=== PATIENT | male | born 1980 | race Caucasian/White ===

== ENCOUNTER 2021-04-02 10:06 | Inpatient (IN) | payer OTHER ==
[~2021-04-02] VITALS: Ht 188 cm; Wt 128.5 kg
[2021-04-02 13:03] LABS: BASOPHIL 0.3 % (0-2); EOSINOPHIL 0.1 % (0-5); HCT 44.6 % (42.0-52.0); HGB 15.7 g/dl (13.2-18.0); LYMPHOCYTE 5.1 % (15-48); MCH 30.1 pg (25.0-31.0); MCHC 35.2 g/dL (32.0-36.0); MCV 85.6 fL (78.0-100.0); MONOCYTE 9.8 % (0-12); MPV 9.4 fL (6.0-9.5); NEUTROPHIL 83.9 % (41-80); NRBC 0; PLT 290 K/uL (150-400); RBC 5.21 M/uL (4.70-6.00); RDW 12.1 % (11.5-14.0); WBC 21.9 K/uL (4.0-10.5)
[2021-04-02 13:23] LABS: ALBUMIN 3.3 g/dL (3.4-5.0); BILIRUBIN - TOTAL 0.7 mg/dL (0.2-1.0); BUN/CREAT RATIO (CALC) 12.4 RATIO; CREATININE 0.89 mg/dL (0.67-1.17); GLOBULIN (CALCULATION) 3.6 g/dL; POTASSIUM 3.3 mmol/L (3.5-5.1); TOTAL PROTEIN 6.9 g/dL (6.4-8.2)
[2021-04-02 13:26] LABS: BILIRUBIN NEGATIVE (NEGATIVE); BLOOD 1+ Ery/uL (NEGATIVE); CLARITY CLEAR (CLEAR); COLOR YELLOW (YELLOW); GLUCOSE (U) NORMAL (NORMAL); LEUKOCYTES NEGATIVE Leu/uL (NEGATIVE); NITRITE NEGATIVE (NEGATIVE); PROTEIN 1+ mg/dL (NEGATIVE); UROBILINOGEN 0.2 mg/dL (0.2-1.0)
[2021-04-02 13:45] LABS: BACTERIA TRACE; MUCOUS TRACE; SQUAMOUS EPITHELIAL CELLS RARE; URINARY RBC RARE
[2021-04-02 14:25] LABS: LACTIC ACID 1.1 mmol/L (0.4-1.9)
[2021-04-02 15:47] LABS: CORONAVIRUS 2019 SARS-COV-2 NEGATIVE (NEGATIVE); INFLUENZA A NAA NEGATIVE (NEGATIVE)
[2021-04-03 04:22] LABS: BILIRUBIN 1+ mg/dL (NEGATIVE); BLOOD 1+ Ery/uL (NEGATIVE); CLARITY CLEAR (CLEAR); COLOR YELLOW (YELLOW); GLUCOSE (U) NORMAL (NORMAL); LEUKOCYTES NEGATIVE Leu/uL (NEGATIVE); NITRITE NEGATIVE (NEGATIVE); PROTEIN 1+ mg/dL (NEGATIVE); SPECIFIC GRAVITY >=1.030 (1.001-1.030); UROBILINOGEN 0.2 mg/dL (0.2-1.0); pH 5.5 (5.0-9.0)
[2021-04-03 04:30] LABS: BACTERIA 2+
[2021-04-03 04:33] LABS: AMORPHOUS URATES CRYSTALS MODERATE; URINARY WBC RARE
[2021-04-03 04:34] LABS: MUCOUS TRACE
[2021-04-03 07:00] LABS: BASOPHIL 0.3 % (0-2); EOSINOPHIL 0 % (0-5); HCT 40.5 % (42.0-52.0); LYMPHOCYTE 3.6 % (15-48); MCH 29.5 pg (25.0-31.0); MCHC 34.6 g/dL (32.0-36.0); MCV 85.4 fL (78.0-100.0); MONOCYTE 8.5 % (0-12); NEUTROPHIL 87.1 % (41-80); NRBC 0; PLT 290 K/uL (150-400); RBC 4.74 M/uL (4.70-6.00); RDW 12.2 % (11.5-14.0)
[2021-04-03 07:54] LABS: BUN/CREAT RATIO (CALC) 13.4 RATIO; CREATININE 0.82 mg/dL (0.67-1.17); MAGNESIUM 2.2 mg/dL (1.8-2.4); POTASSIUM 3.2 mmol/L (3.5-5.1)
[2021-04-03] MEDS ORDERED: LIPITOR20 MG PO (09:39)
[2021-04-03] MEDS ORDERED: XANAX0.5 MG PO (09:39)
[2021-04-03] MEDS ORDERED: NORVASC5 MG PO (09:40)
[2021-04-03] MEDS ORDERED: HCTZ25 MG PO (09:40)
[2021-04-03] MEDS ORDERED: SYNTHROID100 MCG PO (09:40)
[2021-04-03] MEDS ORDERED: NEXIUM 24HR20 M1 PO (09:41)
[2021-04-03] MEDS ORDERED: CLARITIN10 MG PO (09:41)
[2021-04-04 06:08] LABS: BASOPHIL 0.4 % (0-2); EOSINOPHIL 0.4 % (0-5); HCT 42.2 % (42.0-52.0); HGB 14.3 g/dl (13.2-18.0); MCH 29.9 pg (25.0-31.0); MCHC 33.9 g/dL (32.0-36.0); MCV 88.3 fL (78.0-100.0); MPV 9.1 fL (6.0-9.5); NEUTROPHIL 82.6 % (41-80); NRBC 0; PLT 323 K/uL (150-400); RBC 4.78 M/uL (4.70-6.00); RDW 12.8 % (11.5-14.0); WBC 16.2 K/uL (4.0-10.5)
[2021-04-04 06:31] LABS: BUN/CREAT RATIO (CALC) 15.3 RATIO; CREATININE 0.72 mg/dL (0.67-1.17)
--- NOTE | 2021-04-05 02:58 | NUR ---
PT REPORTS INCREASED FLATUS THIS EVENING; PROVIDING SOME RELIEF.
[2021-04-05 13:29] LABS: HCT 43.4 % (42.0-52.0); HGB 14.8 g/dl (13.2-18.0); MCH 29.5 pg (25.0-31.0); MCHC 34.1 g/dL (32.0-36.0); MCV 86.5 fL (78.0-100.0); MPV 8.5 fL (6.0-9.5); RBC 5.02 M/uL (4.70-6.00); RDW 12.9 % (11.5-14.0); WBC 17.4 K/uL (4.0-10.5)
[2021-04-05 13:46] LABS: BUN/CREAT RATIO (CALC) 17.4 RATIO; CREATININE 0.69 mg/dL (0.67-1.17); POTASSIUM 2.8 mmol/L (3.5-5.1)
[2021-04-06 07:23] LABS: HCT 43.8 % (42.0-52.0); HGB 15.3 g/dl (13.2-18.0); MCH 30.4 pg (25.0-31.0); MCHC 34.9 g/dL (32.0-36.0); MCV 86.9 fL (78.0-100.0); MPV 8.5 fL (6.0-9.5); RBC 5.04 M/uL (4.70-6.00); RDW 12.9 % (11.5-14.0); WBC 17.4 K/uL (4.0-10.5)
[2021-04-06 07:56] LABS: BUN/CREAT RATIO (CALC) 12.7 RATIO; CREATININE 0.79 mg/dL (0.67-1.17); POTASSIUM 3.3 mmol/L (3.5-5.1)
[2021-04-07 06:53] LABS: BASOPHIL 0.8 % (0-2); EOSINOPHIL 1.3 % (0-5); HCT 43.9 % (42.0-52.0); LYMPHOCYTE 15.5 % (15-48); MCH 29.9 pg (25.0-31.0); MCHC 34.2 g/dL (32.0-36.0); MCV 87.6 fL (78.0-100.0); MONOCYTE 9.6 % (0-12); MPV 8.5 fL (6.0-9.5); NRBC 0; PLT 452 K/uL (150-400); RBC 5.01 M/uL (4.70-6.00)
[2021-04-07 07:01] LABS: WBC 16.1 K/uL (4.0-10.5)
[2021-04-07 07:29] LABS: ALBUMIN 2.5 g/dL (3.4-5.0); BILIRUBIN - TOTAL 0.4 mg/dL (0.2-1.0); BUN/CREAT RATIO (CALC) 9.3 RATIO; CREATININE 0.86 mg/dL (0.67-1.17); GLOBULIN (CALCULATION) 4.2 g/dL; POTASSIUM 3.2 mmol/L (3.5-5.1); TOTAL PROTEIN 6.7 g/dL (6.4-8.2)
[2021-04-07 07:30] LABS: MAGNESIUM 1.6 mg/dL (1.8-2.4)
[2021-04-07] MEDS ORDERED: NORCO 5-325 TA1 EACH PO (14:14)
[2021-04-07] MEDS ORDERED: ZOFRAN4 M1 PO (14:14)
[2021-04-07] MEDS ORDERED: POTASSIUM CHLO20 ME1 PO (14:14)
[2021-04-07] MEDS ORDERED: METRONIDAZOLE500 MG PO (14:16)
[2021-04-07] MEDS ORDERED: LEVAQUIN750 MG PO (14:16)
== END 2021-04-07 16:10 | disposition home or self-care (01) | DRG 853 ==
LOC: FER 10:06 → FMS 14:45
PROVIDERS: Nurse Practitioner Family; Student in an Organized Health Care Education/Training Program; ADMIT Internal Medicine
PROC: 0WQF0ZZ Repair Abdominal Wall, Open Approach (ICD-10-PCS; 2021-04-02)
PROC: 0DTJ4ZZ Resection of Appendix, Percutaneous Endoscopic Approach (ICD-10-PCS; principal; 2021-04-02 19:00)
DX: A41.9 Sepsis, unspecified organism (principal); K35.32 Acute appendicitis with perforation, localized peritonitis, and gangrene, without abscess; K56.7 Ileus, unspecified; J98.11 Atelectasis; K43.2 Incisional hernia without obstruction or gangrene; Z20.822 Contact with and (suspected) exposure to COVID-19; E87.6 Hypokalemia; F41.9 Anxiety disorder, unspecified; E03.9 Hypothyroidism, unspecified; E78.00 Pure hypercholesterolemia, unspecified; I10 Essential (primary) hypertension; K21.9 Gastro-esophageal reflux disease without esophagitis; R09.02 Hypoxemia; Z79.899 Other long term (current) drug therapy; Z88.8 Allergy status to other drugs, medicaments and biological substances; Z90.49 Acquired absence of other specified parts of digestive tract; Z87.891 Personal history of nicotine dependence
CPT/HCPCS: 36415; 36600; 71046; 71275; 80048; 80053; 81001; 82150; 82803; 83605; 83735; 84145; 85025; 87040; 94010; 94668; J1100; J1170; J1644; J2250; J2405; J2543; J2704; J2710; J3010; J3475; J3480; J3490; J7030; J7120; Q9967; U0002